=== PATIENT | male | born 1955 ===

== ENCOUNTER 2018-06-04 08:52 | Day surgery (SDC) | payer OTHER ==
[~2018-06-04] VITALS: Ht 193 cm; Wt 94.8 kg
[~2018-06-04 08:52] MED LIST: ABAT250V; Zantac150 MG PO; [UNRECOGNIZED DRUG - OTHER]
== END 2018-06-04 22:55 | disposition home or self-care (01) ==
LOC: ORSCMMR 08:52 → ORD 10:00 → ORSCMMR 10:00
PROVIDERS: Internal Medicine Gastroenterology
PROC: 0DB98ZX Excision of Duodenum, Via Natural or Artificial Opening Endoscopic, Diagnostic (ICD-10-PCS; principal; 2018-06-04 10:00)
PROC: 0DB48ZX Excision of Esophagogastric Junction, Via Natural or Artificial Opening Endoscopic, Diagnostic (ICD-10-PCS; principal; 2018-06-04 10:00)
PROC: 0DB58ZX Excision of Esophagus, Via Natural or Artificial Opening Endoscopic, Diagnostic (ICD-10-PCS; principal; 2018-06-04 10:00)
PROC: 0DB68ZX Excision of Stomach, Via Natural or Artificial Opening Endoscopic, Diagnostic (ICD-10-PCS; principal; 2018-06-04 10:00)
DX: K21.9 Gastro-esophageal reflux disease without esophagitis (principal); K31.7 Polyp of stomach and duodenum; Z87.891 Personal history of nicotine dependence; Z79.899 Other long term (current) drug therapy
CPT/HCPCS: 88305; 88342; J7120

== ENCOUNTER 2022-12-10 15:10 | Emergency (ER) | payer MEDICARE, OTHER ==
[~2022-12-10] VITALS: Ht 193 cm; Wt 108.9 kg
[~2022-12-10 15:10] MED LIST changes: +OMEPRAZOLE MAGN20 MG PO
[2022-12-10 15:14] VITALS: BP 135/66
[2022-12-10] MEDS ORDERED: Norco 5-325 Ta1 EACH PO (16:07)
[2022-12-10] MEDS ORDERED: BENZ100A PO (16:07)
== END 2022-12-10 16:24 | disposition home or self-care (01) ==
LOC: ER 15:10
DX: R07.81 Pleurodynia (principal); Z79.899 Other long term (current) drug therapy; Z87.891 Personal history of nicotine dependence
CPT/HCPCS: 71101; 99283-25

== ENCOUNTER → 2024-08-29 | Outpatient (CLI) | payer MEDICARE, OTHER ==
[~2024-08-29] MED LIST changes: +BENZ100A PO; +Norco 5-325 Ta1 EACH PO
[2024-08-29 17:10] LABS: Source, Urine Voided
[2024-08-29 19:24] LABS: Bacteria Few /hpf; Red Blood Cells, Urine 0-2 /hpf (0-2); Squamous Epithelial Cells Few /hpf (Few); White Blood Cells, Urine 0-2 /hpf (0-5)
== END ==
LOC: LAB SHORT 17:05 → LAB 17:05
PROVIDERS: Family Medicine
DX: R82.998 Other abnormal findings in urine (principal)
CPT/HCPCS: 81015

== ENCOUNTER 2024-10-01 07:40 | Day surgery (SDC) | payer MEDICARE, OTHER ==
[~2024-10-01] VITALS: Ht 190.5 cm; Wt 91.6 kg
[2024-10-01] VITALS (24 sets, daily range): BP systolic 100–135; BP diastolic 67–98
[~2024-10-01 07:40] MED LIST changes: +BENADRYL25 M1 PO; +Lactated Ringer's 1,000 ML IV SCH; +MONT5TCH PO
--- NOTE | 2024-10-01 08:23 | NUR ---
History, Chart, Medications and Allergies reviewed before start of procedure. Patient confirms NPO status and agrees with scheduled surgery. Reports taking all of colon prep with clear yellow results. Prema arranged home with friend,
[2024-10-01] MEDS ORDERED: propofoL 40 ML IV ONE (08:47)
[2024-10-01] MEDS ORDERED: Benzocaine Oral Spray 0.5ML UD ONE (08:47)
--- NOTE | 2024-10-01 08:51 | NUR ---
10/01/24 0851 Chalo Blackwell CONFIRMED AND REVIEWED H&P, MEDCICATIONS, ALLERGIES, MEDICAL HISTORY, RESPIRATORY HISTORY, VITAL SIGNS, 3-LEAD EKG, CONSENTS, AND PHYSICIAN ORDERS. PATIENT CONFIRMS NPO STATUS AND AGREES WITH SCHEDULED PROCEDURE. MONITOR INTACT WITH CONTINUOUS PULSE OXIMETRY, CAPNOGRAPHY, 3-LEAD EKG, INTERMITTENT BP. SUPPLEMENTAL O2 TO BE TITRATED THROUGHOUT PROCEDURE TO MAINTAIN O2 SATURATION ABOVE 90%. PATIENT DETERMINED TO BE ASA APPROPRIATE FOR PROPOFOL SEDATION PRIOR TO START OF PROCEDURE BY DR. GARCIA.
--- NOTE | 2024-10-01 10:10 | NUR ---
Patient up to Ambulate independently. Gait steady. Discharge instructions reviewed with patient. Patient verbalizes understanding. Copy given to patient to take home. Discharged via wheelchair to private car for ride home.
== END 2024-10-01 10:14 | disposition home or self-care (01) ==
LOC: ORSCMMR 07:40 → SURS 07:44 → ORSCMMR 07:44 → SURS 07:45 → ORSCMMR 07:45 → ORD 09:00 → ORSCMMR 09:00
PROVIDERS: Internal Medicine Gastroenterology
PROC: 0DB98ZX Excision of Duodenum, Via Natural or Artificial Opening Endoscopic, Diagnostic (ICD-10-PCS; principal; 2024-10-01 09:00)
PROC: 0DB58ZX Excision of Esophagus, Via Natural or Artificial Opening Endoscopic, Diagnostic (ICD-10-PCS; principal; 2024-10-01 09:00)
PROC: 0DBN8ZX Excision of Sigmoid Colon, Via Natural or Artificial Opening Endoscopic, Diagnostic (ICD-10-PCS; principal; 2024-10-01 09:00)
PROC: 0DB68ZX Excision of Stomach, Via Natural or Artificial Opening Endoscopic, Diagnostic (ICD-10-PCS; principal; 2024-10-01 09:00)
PROC: 0DB48ZX Excision of Esophagogastric Junction, Via Natural or Artificial Opening Endoscopic, Diagnostic (ICD-10-PCS; principal; 2024-10-01 09:00)
DX: K21.00 Gastro-esophageal reflux disease with esophagitis, without bleeding (principal); Z86.0100 Personal history of colon polyps, unspecified; J44.9 Chronic obstructive pulmonary disease, unspecified; Q45.8 Other specified congenital malformations of digestive system; K63.5 Polyp of colon; K22.10 Ulcer of esophagus without bleeding; K44.9 Diaphragmatic hernia without obstruction or gangrene; Z87.891 Personal history of nicotine dependence; Z79.899 Other long term (current) drug therapy
CPT/HCPCS: 88305; 88312; 88342; A9270; J2704; J7120